=== PATIENT | female | born 1965 | race Hispanic/Latino ===

== ENCOUNTER → 2017-05-06 | Outpatient (CLI) | payer OTHER ==
[~2017-05-06] MED LIST: ATORVASTATIN CA10 MG PO; LORATADINE10 MG PO; METFORMIN HCL500 MG PO
== END ==
LOC: MAMMO 09:47
PROVIDERS: ATTEND Internal Medicine
DX: Z12.31 Encounter for screening mammogram for malignant neoplasm of breast (principal)
CPT/HCPCS: 77067

== ENCOUNTER → 2017-06-11 | Outpatient (CLI) | payer OTHER ==
--- NOTE | 2017-06-11 15:59 | Diagnostic Imaging Report ---
#[id number] - USBRELIMLT ULTRASOUND OF THE LEFT BREAST : 06/11/2017 Comparison is made to exam dated: 05/06/2017 mammogram - [facility]. Color flow and real-time ultrasound were performed on the left breast with scanning from 12 to 6 o'clock. -At the 3 o'clock position 2 cm from the nipple is a 4 mm benign appearing cyst. This likely corresponds with the mammographic finding. IMPRESSION: BENIGN There is no sonographic evidence of malignancy. A 1 year screening mammogram is recommended. Fareed Vu Jr., D.O. cw/:06/11/2017 14:12:44 [employer]: SHANEKA FAITH, [facility] letter sent: Normal Exam Ultrasound BI-RADS: 2 Benign
== END ==
LOC: MAMMO 09:23
PROVIDERS: ATTEND Internal Medicine
DX: N63.20 Unspecified lump in the left breast, unspecified quadrant (principal)

== ENCOUNTER → 2018-06-14 | Outpatient (CLI) | payer OTHER | LOC: MAMMO 14:49 | PROVIDERS: ATTEND Internal Medicine | DX: Z12.31 Encounter for screening mammogram for malignant neoplasm of breast (principal) | CPT/HCPCS: 77067 ==

== ENCOUNTER → 2020-05-16 | Outpatient (CLI) | payer OTHER | LOC: NM 07:57 | PROVIDERS: ATTEND Internal Medicine | DX: R89.9 Unspecified abnormal finding in specimens from other organs, systems and tissues (principal) | CPT/HCPCS: 70260; 73552 ×2; 78306; 73590; A9503; A9570 ==